=== PATIENT | male | born 1945 | race Caucasian/White ===

== ENCOUNTER 2024-02-05 06:48 | Outpatient (CLI) | payer MEDICARE, SELFPAY ==
--- NOTE | 2024-02-05 | ECHO_ITS ---
Patient Info Name: Ricardo Morrissey Age: 78 years : 1945 Gender: Male Ht: 71 in Wt: 250 lbs BSA: 2.42 m2 HR: 68 bpm Heart Rhythm: Sinus Rhythm Technical Quality: Fair Exam Date: 02/05/2024 10:55 AM Exam Location: Echo Lab Patient Status: Outpatient Admit Date: 02/05/2024 Staff Ordering Physician: Shane Galarza MD Pnp: Rocael Simmons RDCS Attending Provider: Shane Galarza MD Referring Physician: Michell LAKE; Exam Type: CA echo doppler color flow Study Info Indications I27.0 - Primary pulmonary hypertension Complete two-dimensional, color flow and Doppler transthoracic echocardiogram is performed. Summary 1. Complete two-dimensional, color flow and Doppler transthoracic echocardiogram is performed. 2. Left ventricular chamber dimension is normal. 3. Left ventricular systolic function is normal, estimated at 65-70%. 4. There is mildly increased left ventricular wall thickness. 5. The left ventricular diastolic function is normal. 6. Left atrial chamber dimension is moderately enlarged. 7. Right atrial chamber dimension is mildly enlarged. 8. There is mild mitral valve regurgitation. 9. The mitral valve annulus is mildly calcified. 10. There is mild tricuspid valve regurgitation. 11. There is mild aortic valve calcification. 12. There is mild aortic valve regurgitation. 13. No pulmonary hypertension, estimated pulmonary arterial systolic pressure is 26 mmHg. 14. The aortic root size at the sinus of Valsalva is mildly dilated. Left Ventricle Left ventricular chamber dimension is normal. Left ventricular systolic function is normal, estimated at 65-70%. There is mildly increased left ventricular wall thickness. The left ventricular diastolic function is normal. Right Ventricle Right ventricular chamber dimension is normal. Right ventricular systolic function is normal. Left Atria Left atrial chamber dimension is moderately enlarged. Right Atria Right atrial chamber dimension is mildly enlarged. Atrial Septum Intact interatrial septum visualized by color flow imaging. Aortic Valve The aortic valve is trileaflet. There is no aortic valve stenosis. There is mild aortic valve regurgitation. There is mild aortic valve calcification. Pulmonic Valve The pulmonic valve is normal. There is no pulmonic valve stenosis. There is trace pulmonic regurgitation. Mitral Valve There is no mitral valve stenosis. There is mild mitral valve regurgitation. The mitral valve annulus is mildly calcified. Tricuspid Valve The tricuspid valve leaflets are normal. There is no significant tricuspid valve stenosis. There is mild tricuspid valve regurgitation. No pulmonary hypertension, estimated pulmonary arterial systolic pressure is 26 mmHg. Pericardium/Pleural The pericardium appears normal. There is no pericardial effusion. Inferior Vena Cava Normal inferior vena cava with >50% collapse upon inspiration consistent with normal right atrial pressure, 5 mmHg. Aorta The aortic root size at the sinus of Valsalva is mildly dilated. Left Ventricular Outflow Tract Name Value Normal LVOT 2D LVOT Diameter 2.0 cm LVOT Doppler LVOT Peak Velocity 117 cm/s LVOT Peak Gradient 5 mmHg LVOT Mean Gradient 2 mmHg LVOT VTI 20 cm LVOT VTI/AV VTI Ratio 1.0 LVOT Stroke Volume 61 ml LVOT CO 3.8 l/min LVOT CI 1.6 l/min/m2 Pulmonic Valve Name Value Normal PV Doppler PV Peak Velocity 81 cm/s PV Peak Gradient 3 mmHg Mitral Valve Name Value Normal MV Doppler MV Decel [place] 228 cm/s2 MV PHT 82 ms MV Area (PHT) 2.7 cm2 4.0-5.0 MV Diastolic Function MV E Peak Velocity 64 cm/s MV A Peak Velocity 101 cm/s MV E/A 0.6 MV Decel Time 281 ms Tricuspid Valve Name Value Normal TV Regurgitation Doppler TR Peak Velocity 226 cm/s TR Peak Gradient 21 mmHg Estimated PAP/RSVP RA Pressure 5 mmHg <=5 PA Systolic Pressure 26 mmHg <36 RV Systolic Pressure 26 mmHg <36 TV Annular TDI TV Lateral Priscilla s' Velocity 12.0 cm/s 9.5-18.7 Aorta Name Value Normal Ascending Aorta Ao Root Diameter (MM) 2.5 cm Ao Root Diam Index (MM) 1.0 cm/m2 Aortic Valve Name Value Normal AV Doppler AV Peak Velocity 134 cm/s AV Peak Gradient 7 mmHg AV Mean Gradient 3 mmHg AV VTI 21 cm AV Area (Cont Eq VTI) 3.0 cm2 >=3.0 AV Area (Cont Eq Wilbur) 2.7 cm2 AV V1/V2 Ratio 0.87 AV Regurgitation 2D LVOT Area 3.1 cm2 AV Regurgitation Doppler AR Decel Time 1,941 ms AR Decel [place] 118 cm/s2 AR PHT 563 ms Ventricles Name Value Normal LV Dimensions 2D/MM IVS Diastolic Thickness (2D) 0.7 cm 0.6-1.0 IVS Diastole Thickness (MM) 1.0 cm 0.6-1.0 LVID Diastole (2D) 5.1 cm 4.2-5.8 LVID Diastole (MM) 4.6 cm 4.2-5.8 LVIW Diastolic Thickness (2D) 0.9 cm 0.6-1.0 LVIW Diastolic Thickness (MM) 1.0 cm 0.6-1.0 LVID Systole (2D) 3.3 cm 2.5-4.0 LVID Systole (MM) 3.0 cm 2.5-4.0 LVOT Diameter 2.0 cm LV Mass (2D Cubed) 146.01 g 88.00-224.00 LV Mass Index (2D Cubed) 60 g/m2 49-115 Relative Wall Thickness (2D) 0.35 LV Mass (MM Cubed) 165.99 g 88.00-224.00 LV Mass Index (MM Cubed) 69 g/m2 49-115 Relative Wall Thickness (MM) 0.44 LV Fractional Shortening/Ejection Fraction 2D/MM LV Fractional Shortening (2D) 37 % 25-43 LV Fractional Shortening (MM) 36 % 25-43 LV EF (MM Teicholz) 65 % 52-72 LV EF (2D Teicholz) 66 % 52-72 LV Diastolic Volume (4C MOD) 56 ml LV EF (4C MOD) 76 % LV Diastolic Volume (2C MOD) 28 ml LV EF (2C MOD) 71 % LV Diastolic Volume (BP MOD) 41 ml 62-150 LV Diastolic Volume Index (BP MOD) 17 ml/m2 34-74 LV Systolic Volume (BP MOD) 10 ml 21-61 LV Systolic Volume Index (BP MOD) 4 ml/m2 11-31 LV EF (BP MOD) 75 % 52-72 LV Diastolic Length (4C) 7.5 cm LV Systolic Length (4C) 6.2 cm LV Stroke Volume (4C MOD) 43 ml Atria Name Value Normal LA Dimensions LA Dimension (MM) 4.9 cm 3.0-4.1 LA Volume (4C A-L) 46 ml LA Volume (BP A-L) 35 ml RA Dimensions RA Area (4C) 11.0 cm2 <=18.0 Report Signatures
--- NOTE | ~2024-02-05 | CT_ITS ---
Clinical Indication: Pulmonary embolus CT Scan of the Chest with Contrast: Technique: Contiguous sections were acquired throughout the chest after intravenous administration of 100 cc of Omnipaque 350. Dose reduction technique was used on this scan by utilizing automated expos ure control and iterative reconstruction technique. The dose-length product (DLP) was 667.84 mGy-cm. Findings: There is no evidence of any significant mediastinal, hilar or axillary lymphadenopathy. There is no f illing defect in the pulmonary arterial tree to suggest pulmonary embolus. There is no evidence of ao rtic dissection or aneurysm. There is no evidence of pleural or pericardial effusion. 7 mm groundglass nodule noted in the right perifissural region (axial image 63). There are mild depen dent atelectatic/hypoventilatory changes versus scarring. Images through the upper abdomen reveal no abnormalities. Impression: No evidence of pulmonary embolus, aortic dissection, or aortic aneurysm. 7 mm groundglass nodule in the right lung, as above. Consider one-year follow-up. Reviewed, dictated and finalized at [facility]. MINER Impression: No evidence of pulmonary embolus, aortic dissection, or aortic aneurysm. 7 mm groundglass nodule in the right lung, as above. Consider one-year follow-u p.
[2024-02-05 07:57] LABS: Estimated Glomerular Filt Rate 45
== END 2024-02-05 06:49 | disposition home or self-care (01) ==
PROVIDERS: Visit Provider Internal Medicine Cardiovascular Disease
DX: I10 Essential (primary) hypertension (principal); I82.509 Chronic embolism and thrombosis of unspecified deep veins of unspecified lower extremity; I26.99 Other pulmonary embolism without acute cor pulmonale
CPT/HCPCS: 71275; 93306; Q9967